=== PATIENT | female | born 1965 | race Hispanic/Latino ===

== ENCOUNTER 2018-06-06 10:51 | Emergency (ER) | payer OTHER ==
[2018-06-06 11:19] LABS: BASOPHILS % (AUTO) 0.7 % (0.0-5.0); EOSINOPHILS % (AUTO) 2.8 % (0.0-8.0); HEMATOCRIT 37.6 % (36-48); LYMPHOCYTES % (AUTO) 26.2 % (21.0-51.0); MEAN CORPUSCULAR HEMOGLOBIN 28.8 pg (27.0-33.0); MEAN CORPUSCULAR HGB CONC 33.1 g/dL (32.0-36.0); MEAN CORPUSCULAR VOLUME 87.1 fL (79-99); MONOCYTES % (AUTO) 7.2 % (3.0-13.0); NEUTROPHILS % (AUTO) 63.1 % (40.0-77.0); NUCLEATED RED BLOOD CELLS 0.2 % (0.0-0.19); PLATELET COUNT (AUTO) 382 K/uL (130-400); RED BLOOD CELL COUNT(AUTO) 4.31 MIL/uL (4.00-5.50); WHITE BLOOD COUNT (AUTO) 9.2 K/uL (4.8-10.8)
[2018-06-06 11:26] LABS: CREATININE 0.8 mg/dL (0.5-1.5); POTASSIUM 3.7 mmol/L (3.5-5.1)
== END 2018-06-06 12:29 | disposition home or self-care (01) ==
LOC: EDH 10:51
DX: N93.9 Abnormal uterine and vaginal bleeding, unspecified (principal)
CPT/HCPCS: 36415; 80048; 85025

== ENCOUNTER 2019-04-12 08:29 | Emergency (ER) | payer OTHER ==
[~2019-04-12] VITALS: Ht 157.5 cm; Wt 53.1 kg
[2019-04-12 09:30] LABS: BASOPHILS % (AUTO) 0.8 % (0.0-5.0); EOSINOPHILS % (AUTO) 4.4 % (0.0-8.0); HEMATOCRIT 40.9 % (36-48); LYMPHOCYTES % (AUTO) 21.8 % (21.0-51.0); MEAN CORPUSCULAR HEMOGLOBIN 29.5 pg (27.0-33.0); MEAN CORPUSCULAR HGB CONC 33.7 g/dL (32.0-36.0); MEAN CORPUSCULAR VOLUME 87.5 fL (79-99); MONOCYTES % (AUTO) 7.9 % (3.0-13.0); NEUTROPHILS % (AUTO) 65.1 % (40.0-77.0); NUCLEATED RED BLOOD CELLS 0.1 % (0.0-0.19); PLATELET COUNT (AUTO) 290 K/uL (130-400); RED BLOOD CELL COUNT(AUTO) 4.67 MIL/uL (4.00-5.50); RED CELL DISTRIBUTION WIDTH 13.6 % (11.0-15.5); WHITE BLOOD COUNT (AUTO) 7.9 K/uL (4.8-10.8)
[2019-04-12 09:33] LABS: APPEARANCE,URINE TURBID (CLEAR); BILIRUBIN,URINE SMALL (NEGATIVE); COLOR,URINE RED (YELLOW); GLUCOSE, URINE (UA) NEGATIVE (NEGATIVE); KETONES,URINE NEGATIVE (NEGATIVE); LEUKOCYTE ESTERASE ,URINE TRACE (NEGATIVE); NITRATE,URINE NEGATIVE (NEGATIVE); OCCULT BLOOD,URINE LARGE (NEGATIVE); PH,URINE 5.5 (5.0-8.0); PROTEIN,URINE 30 mg/dL (NEGATIVE)
[2019-04-12 09:34] LABS: HCG,QUAL RESULT NEGATIVE (NEGATIVE)
[2019-04-12 09:39] LABS: CREATININE 0.9 mg/dL (0.5-1.5); POTASSIUM 3.8 mmol/L (3.5-5.1)
[2019-04-12 09:47] LABS: ALBUMIN 3.6 g/dL (3.5-5.0); BILIRUBIN,TOTAL 0.5 mg/dL (0.2-1.0); TOTAL PROTEIN, SERUM 7.4 g/dL (6.0-8.3)
[2019-04-12 09:52] LABS: BACTERIA,URINE Rare /HPF (None Seen); RBC,URINE Full Field /HPF (0-1); SQUAMOUS EPITHELIAL CELL,UR 0-2 /HPF (0-2); WBC,URINE 0-1 /HPF (0-1)
[2019-04-12] MEDS ORDERED: HYDROCODONE/ACETAMINOPHEN 5/325 MG TAB ONE (10:35)
[2019-04-12] MEDS ORDERED: ESTROGENS,CONJUGATED 25 MG/VIAL IM SCH (12:30)
== END 2019-04-12 13:39 | disposition home or self-care (01) ==
LOC: EDH 08:29
DX: N93.8 Other specified abnormal uterine and vaginal bleeding (principal); N83.202 Unspecified ovarian cyst, left side; Z90.49 Acquired absence of other specified parts of digestive tract; Z87.891 Personal history of nicotine dependence
CPT/HCPCS: 36415; 76856; 80053; 81001; 81025; 85025; 96372; 99285; J1410

== ENCOUNTER 2024-05-20 11:21 | Observation (INO) | payer OTHER ==
[~2024-05-20] VITALS: Ht 157.5 cm; Wt 57.4 kg
[2024-05-20 12:09] LABS: BASOPHILS # (AUTO) 0.08 K/uL (0.00-0.20); BASOPHILS % (AUTO) 1.1 % (0.0-5.0); EOSINOPHILS # (AUTO) 0.17 K/uL (0.00-0.70); EOSINOPHILS % (AUTO) 2.3 % (0.0-8.0); HEMATOCRIT 39.9 % (36-48); IMMATURE GRANULOCYTE ABSOLUTE 0.02 K/uL (0-1); LYMPHOCYTES # (AUTO) 2.4 K/uL (1.0-4.8); LYMPHOCYTES % (AUTO) 33.1 % (21.0-51.0); MEAN CORPUSCULAR HGB CONC 32.3 g/dL (32.0-36.0); MEAN CORPUSCULAR VOLUME 86.6 fL (79-99); MONOCYTES # (AUTO) 0.5 K/uL (0.1-1.0); MONOCYTES % (AUTO) 7.2 % (3.0-13.0); NEUTROPHILS # (AUTO) 4.1 K/uL (1.8-7.7); PLATELET COUNT (AUTO) 321 K/uL (130-400); RED BLOOD CELL COUNT(AUTO) 4.61 MIL/uL (4.00-5.50); RED CELL DISTRIBUTION WIDTH 12.6 % (11.0-15.5); WHITE BLOOD COUNT (AUTO) 7.3 K/uL (4.8-10.8)
[2024-05-20 12:15] LABS: CARBON DIOXIDE 33 mmol/L (21-32); CHLORIDE 106 mmol/L (101-111); CREATININE 0.8 mg/dL (0.5-1.0); GLOMERULAR FILTR. RATE CALC 85 mL/min (>90); GLUCOSE,RANDOM 91 mg/dL (70-105); POTASSIUM 3.5 mmol/L (3.5-5.1); SODIUM SERUM 144 mmol/L (136-145); UREA NITROGEN, BLOOD 10 mg/dL (7-18)
[2024-05-20 12:23] LABS: AMMONIA < 10 umol/L (11-32); CREATINE KINASE, TOTAL 82 U/L (21-232)
--- NOTE | 2024-05-20 12:39 | ERN ---
General Chief Complaint: Dizzy/Light Headed Stated Complaint: DIZZY SPELLS,WANTS TO PASSOUT Time Seen by MD: 11:26 History of Present Illness Initial Comments 59F presents for near syncopal episode x2 this morning with chest discomfort. Patient reports she was at work, she felt very faint and had to sit down. She did not faint. She felt a little bit of chest pressure. She went back to working and she had a 2nd episode. She did not actually lose consciousness. She denies any dyspnea. She has otherwise been in normal state of health. She reports that she had a similar episode not too long ago which had resolved. Patient denies any medical conditions. Allergies: Coded Allergies: No Known Drug Allergies (Verified Allergy, Unknown, 04/12/19) Past Medical History Past Medical History: No Pertinent History Past Surgical History: Appendectomy, Cholecystectomy, Other Surgical History Other: D/C ROS Dictation CONSTITUTIONAL: No chills, no fever, no weakness, no diaphoresis, no malaise. HEAD/FACE: No signs of trauma. EENT: No eye pain, no blurred vision, no tearing, no double vision, no ear pain, no ear discharge, no nose pain, no nasal congestion, no throat pain, no throat swelling, no mouth pain. RESPIRATORY: No cough, no orthopnea, no SOB, no stridor, no wheezing. CARDIOVASCULAR: No chest pain, no edema, no palpitations, no syncope. GASTROINTESTINAL/ABDOMINAL: No abdominal pain, no constipation, no diarrhea, no nausea, no vomiting. GENITOURINARY: No abnormal discharge, no dysuria, no frequent urination, no hematuria. No complaints of pain in the genitals. MUSCULOSKELETAL: No back pain, no gout, no joint pain, no joint swelling, no muscle pain, no muscle stiffness, no neck pain. INTEGUMENTARY: No change in color, no change in hair/nails, no dryness, no lesion, no lumps, no rash. NEUROLOGICAL/PSYCH: Dizziness HEMATOLOGIC/LYMPHATIC: Not anemic, no history of blood clots, no apparent bleeding, no bruising, glands not swollen. All Systems Negative, Except as Noted. Physical Exam Physical Exam Dictation VITAL SIGNS: Reviewed. GENERAL APPEARANCE: Alert, oriented x3, no acute distress. HEAD AND FACE: Non-traumatic. EYES: PERRL, pink conjunctivas, eyelid no trauma, anterior chamber clear. EARS: Pinnas intact and no signs of trauma or erythema. Ear canals clear and no discharge. TMs no erythema. NOSE: No discharge, no bleeding. OROPHARYNX: Mouth normal, teeth no caries, tongue pink. Pharynx clear, no erythema. Tonsils no exudates, no abscesses noted. Mucous membrane moist. NECK: Supple, non-tender, no thyromegaly, no masses, no JVD, no bruits. BREAST: Deferred. CHEST: No tenderness, no crepitus, no paradoxical movement, no retractions. LUNGS: Clear, well-ventilated, symmetric, no rales, no wheezing, no rhonchi, no stridor, good breath sounds bilaterally. HEART: Regular rate, regular rhythm, no murmur, no gallops. VASCULAR: No peripheral edema. ABDOMEN: Soft, positive bowel sounds, nondistended, no guarding, nontender, no rebound, no masses no hepatomegaly, no splenomegaly, no Horta's sign, no hernias. RECTAL: Deferred. GENITAL: Deferred. NEUROLOGICAL: Normal speech, gross motor function intact, gross sensory function intact. MUSCULOSKELETAL: Neck nontender, full range of motion, back nontender, full range of motion. EXTREMITIES: Nontender, full range of motion. SKIN: Color pink, dry, no turgor, no rash, no lacerations, no abrasions, no contusions. LYMPHATICS: Deferred. VITAL SIGNS: Reviewed. GENERAL APPEARANCE: Alert, oriented x3, no acute distress, obese. HEAD AND FACE: Non-traumatic. EYES: PERRL, pink conjunctivas, eyelid no trauma, anterior chamber clear. EARS: Pinnas intact and no signs of trauma or erythema. Ear canals clear and no discharge. TMs no erythema. NOSE: No discharge, no bleeding. OROPHARYNX: Mouth normal, teeth no caries, tongue pink. Pharynx clear, no erythema. Tonsils no exudates, no abscesses noted. Mucous membrane moist. NECK: Supple, non-tender, no thyromegaly, no masses, no JVD, no bruits. BREAST: Deferred. CHEST: No tenderness, no crepitus, no paradoxical movement, no retractions. LUNGS: Clear, well-ventilated, symmetric, no rales, no wheezing, no rhonchi, no stridor, good breath sounds bilaterally. HEART: Regular rate, regular rhythm, no murmur, no gallops. VASCULAR: No peripheral edema. ABDOMEN: Soft, positive bowel sounds, nondistended, no guarding, nontender, no rebound, no masses no hepatomegaly, no splenomegaly, no Horta's sign, no hernias. RECTAL: Deferred. GENITAL: Deferred. NEUROLOGICAL: Normal speech, gross motor function intact, gross sensory function intact. MUSCULOSKELETAL: Neck nontender, full range of motion, back nontender, full range of motion. EXTREMITIES: Nontender, full range of motion. SKIN: Color pink, dry, no turgor, no rash, no lacerations, no abrasions, no contusions. LYMPHATICS: Deferred. Results Laboratory and Microbiology Lab and Micro Result Laboratory Tests Test 05/20/24 11:53 White Blood Count 7.3 K/uL (4.8-10.8) Red Blood Count 4.61 MIL/uL (4.00-5.50) Hemoglobin 12.9 g/dL (12.0-16.0) Hematocrit 39.9 % (36-48) Mean Corpuscular Volume 86.6 fL (79-99) Mean Corpuscular Hemoglobin 28.0 pg (27.0-33.0) Mean Corpuscular Hemoglobin Concent 32.3 g/dL (32.0-36.0) Red Cell Distribution Width 12.6 % (11.0-15.5) Platelet Count 321 K/uL (130-400) Mean Platelet Volume 10.3 fL (7.5-10.5) Immature Granulocyte % (Auto) 0.3 % (0-1) Neutrophils (%) (Auto) 56.0 % (40.0-77.0) Lymphocytes (%) (Auto) 33.1 % (21.0-51.0) Monocytes (%) (Auto) 7.2 % (3.0-13.0) Eosinophils (%) (Auto) 2.3 % (0.0-8.0) Basophils (%) (Auto) 1.1 % (0.0-5.0) Neutrophils # (Auto) 4.1 K/uL (1.8-7.7) Lymphocytes # (Auto) 2.4 K/uL (1.0-4.8) Monocytes # (Auto) 0.5 K/uL (0.1-1.0) Eosinophils # (Auto) 0.17 K/uL (0.00-0.70) Basophils # (Auto) 0.08 K/uL (0.00-0.20) Absolute Immature Granulocyte (auto 0.02 K/uL (0-1) Nucleated Red Blood Cells 0.0 % (0.0-0.19) Sodium Level 144 mmol/L (136-145) Potassium Level 3.5 mmol/L (3.5-5.1) Chloride Level 106 mmol/L (101-111) Carbon Dioxide Level 33 mmol/L (21-32) H Blood Urea Nitrogen 10 mg/dL (7-18) Creatinine 0.8 mg/dL (0.5-1.0) Glomerular Filtration Rate Calc 85 mL/min (>90) Random Glucose 91 mg/dL (70-105) Total Calcium 9.3 mg/dL (8.5-10.1) Magnesium Level 2.20 mg/dL (1.80-2.40) Ammonia < 10 umol/L (11-32) L Total Creatine Kinase 82 U/L (21-232) Troponin I High Sensitivity < 4.0 ng/L (4-50) L MDM CC: Near-syncope x2, chest discomfort. Historian: patient Comorbidities: denies. Limitations Ddx: ACS, arrhythmia, vertigo, infection, anemia, etc. VSS EKG: NSR rate 79, normal axis, good RWP, intervals WNL. No STEMI. CBC: normal. Chemistry normal. Ammonia normal. CK normal. Troponin normal. Patient received 1L NS here in the ED. Patient stable. VSS, labs stable, EKG normal. Since the patient had some chest pressure during the event, we will admit for observation and further treatment. Heart score of two for age ED Course Orders Procedure Category Date Status Time 12 Lead Ekg Tracing- EKG 05/20/24 Logged Technical 11:38 0.9%Nacl 1000ml (Ns PHA 05/20/24 Complete 1000ml) 12:00 Ammonia LAB 05/20/24 Complete 11:41 Cardiac Panel LAB 05/20/24 Complete 11:41 Cbc With Differential LAB 05/20/24 Complete 11:41 Basic Metabolic Panel LAB 05/20/24 Complete 11:41 Magnesium LAB 05/20/24 Complete 11:41 Urinalysis Profile LAB 05/20/24 Logged 11:41 12 Lead Ekg Tracing- EKG 05/20/24 Logged Technical 11:41 Chest 1vw RAD 05/20/24 Logged 13:15 Ct Head/Brain W/O CT 05/20/24 Logged Contrast 13:15 Vital Signs(Adult CPOE 05/20/24 Transmitted Hospitalist) 13:23 Nurse To Enter Home CPOE 05/20/24 Transmitted Medication 13:23 Admit Orders ADM 05/20/24 Transmitted 13:23 Current Medications Medications (Trade) Dose Ordered Sig/Kirby Route PRN Reason Start Time Stop Time Status Last Admin Dose Admin Sodium Chloride 1,000 ml @ 0 mls/hr ONCE ONCE IV 05/20/24 12:00 05/20/24 12:01 DC 05/20/24 13:08 Vital Signs Date Time Temp Pulse Resp B/P (MAP) Pulse Ox O2 Delivery O2 Flow Rate FiO2 05/20/24 11:34 98.6 86 20 108/69 97 Room Air 0 DX & DISP Disposition: Inpatient Departure Impression: Primary Impression: Near syncope Additional Impression: Chest pain Condition: Stable Referrals: NONE (PCP) ELLIOTT MOHR DO May 20, 2024 12:39
[2024-05-20] MEDS: 0.9%NACL 1000ML 1,000 ML IV ONE (13:08)
--- NOTE | 2024-05-20 14:16 | HMCIMG ---
Exam: NONCONTRAST CT BRAIN REASON: CASEY, syncope. COMPARISON: None. TECHNIQUE: Images are obtained from vertex to the skull base. The exam was performed without IV contrast. FINDINGS: There is normal appearing brain parenchyma. There are no focal mass lesions. There is is no evidence of intracranial hemorrhage or acute stroke. Ventricles and sulci appear normal. Posterior fossa and brainstem structures are unremarkable. Paranasal sinuses and remaining extracranial soft tissues appear normal as well. IMPRESSION: 1. Normal noncontrast CT brain. CT was performed with one or more following dose reduction techniques: automated exposure control, adjustment of the mA and kv according to patient's size, or use of a iterative reconstruction technique.
--- NOTE | 2024-05-20 14:18 | EKG ---
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
--- NOTE | 2024-05-20 14:25 | HMCIMG ---
CHEST 1VW REASON: near syncope COMPARISON: None. FINDINGS: Single view of the chest was obtained. Lungs are clear. Heart size is normal. There is no pulmonary vascular congestion. Mediastinum and bony thorax appear unremarkable. IMPRESSION: 1. Normal single view chest x-ray.
[2024-05-20 14:26] LABS: APPEARANCE,URINE CLEAR (CLEAR); BILIRUBIN,URINE NEGATIVE (NEGATIVE); COLOR,URINE LIGHT-YELLOW (YELLOW); GLUCOSE, URINE (UA) NEGATIVE (NEGATIVE); KETONES,URINE NEGATIVE (NEGATIVE); LEUKOCYTE ESTERASE ,URINE NEGATIVE Leu/uL (NEGATIVE); NITRATE,URINE NEGATIVE (NEGATIVE); PH,URINE 6.5 (5.0-8.0); PROTEIN,URINE NEGATIVE (NEGATIVE); UROBILINOGEN,URINE 0.2 mg/dL (0.2-1.0)
[2024-05-20 14:29] LABS: ADD UA MICROSCOPIC YES
[2024-05-20] MEDS ORDERED: ondanSETRON 4MG INJ IVP PRN (14:30)
[2024-05-20 14:33] LABS: BACTERIA,URINE RARE /HPF (None Seen); MUCUS,URINE RARE LPF (None Seen); SQUAMOUS EPITHELIAL CELL,UR RARE /HPF (0-2); WBC,URINE 0-1 /HPF (0-1)
--- NOTE | 2024-05-20 14:37 | HP ---
[facility] HISTORY [facility] PHYSICAL Date of Service: May 20, 2024 Time of Service: 14:32 HISTORY OF PRESENT ILLNESS: [ ] Admission date 2023 PCP none This is a 59-year-old male that presents in ED with chief complaints of multiple near-syncope. Onset reports dizziness have been ongoing for months. Reports losing her balance. This morning when she was at work. She was fine this morning she reports no headaches, palpitation, shortness a breath when on doing her regular routine. Patient has no significant medical history. ER workup was done CT head was negative. We will do further workup carotid Doppler and echo study. Patient was seen in ED patient is fully awake alert oriented x3 no focal or sensory deficits noted. We will do further workup discussed the plan of care with patient and patient's son verbalized understanding. REVIEW OF SYSTEMS CONSTITUTIONAL: Denies fevers, chills, or night sweats. No unintentional weight loss reported. NEUROLOGICAL: Denies headache, amaurosis fugax, motor weakness, sensory deficit, vertigo/spinning sensation, gait abnormalities, or tremors. ENT: No hearing loss, otalgia, otorrhea, rhinitis, rhinorrhea, hoarseness, or sore throat. CARDIOVASCULAR: Denies any exertional angina, dyspnea on exertion, orthopnea, paroxysmal nocturnal dyspnea, palpitations, life-threatening arrhythmias, claudication. PULMONARY: Denies any shortness of breath, cough, phlegm/sputum, hemoptysis, pleuritic chest pain. SLEEP: Denies morning headaches, daytime somnolence or napping. Denies difficulty falling asleep, staying asleep, waking from sleep. Denies knowledge of snoring. GASTROINTESTINAL: Denies any type of dysphagia to either liquids or solids. Denies nausea, vomiting, pyrosis, early satiety, abdominal pain, diarrhea, constipation, or changes in stool consistency or caliber. Denies coffee-ground emesis, hematemesis, hematochezia, or melanotic stools. GENITOURINARY: Denies frequency, urgency, nocturia, hematuria or incontinence (Storage/Irritative symptoms.) Low urinary stream, straining to void, urinary intermittency or hesitancy, splitting of the voiding stream, terminal dribbling. ENDOCRINOLOGIC: Denies polyuria, polydipsia, polyphagia or heat/cold intolerances. HEMATOLOGIC: Denies thrombophilia/previous clots, or coagulopathy/bleeding disorders. ONCOLOGIC: Denies personal history of malignancy. DERMATOLOGIC: Denies rashes or pruritus. PSYCHIATRIC: Denies any suicidal or homicidal ideation. Denies hallucinations. PAST MEDICAL HISTORY: [ ] None PAST SURGICAL HISTORY: [ ] Gallbladder removal, appendectomy PAST SOCIAL HISTORY: [ ] Denies smoking tobacco products and alcohol use FAMILY HISTORY: [ ] Noncontributory Coded Allergies: No Known Drug Allergies (Verified Allergy, Unknown, 04/12/19) PHYSICAL EXAM GENERAL APPEARANCE: The patient is awake, alert, and oriented, in no acute cardiopulmonary distress. NEUROLOGICAL: Cranial nerves II-XII grossly intact. Motor is 5/5 in bilateral upper and lower extremities proximal to distal. No sensory deficits. HEENT: Face is symmetric. Pupils are equal and reactive. Extraocular movements are intact. NECK: Supple. No JVD. No thyromegaly. No submental, submandibular, pre- /postauricular, occipital or supraclavicular lymphadenopathy. CHEST: Normal chest expansion. No Telemetry. LUNGS: Absence of any rales, rhonchi or any wheezing. CARDIOVASCULAR: Regular. S1 and S2 normal. No appreciable rubs, murmurs or gallops. ABDOMEN: Soft, nontender, and nondistended. There is no rebound, voluntary guarding, or rigidity. : Deferred. No Zambrano. EXTREMITIES: Non-edematous and not cyanotic. No clubbing. Good capillary refill. SKIN: No skin breakdown. Vital Sign (Last 24 Hours) 05/20/24 13:22 Temp 98.4 Pulse 70 Resp 18 B/P (MAP) 141/72 Pulse Ox 99 O2 Delivery Room Air* O2 Flow Rate 0 FiO2 21 LABS: Laboratory: Test 05/20/24 13:00 05/20/24 11:53 Range/Units Urine Color LIGHT-YELLOW YELLOW Urine Appearance CLEAR CLEAR Urine pH 6.5 5.0-8.0 Urine Specific Archer 1.020 1.001-1.031 Urine Protein NEGATIVE NEGATIVE mg/dL Urine Glucose (UA) NEGATIVE NEGATIVE mg/dL Urine Ketones NEGATIVE NEGATIVE mg/dL Urine Occult Blood +- (TRACE) H NEGATIVE Urine Nitrate NEGATIVE NEGATIVE Urine Bilirubin NEGATIVE NEGATIVE mg/dL Urine Urobilinogen 0.2 0.2-1.0 mg/dL Urine Leukocyte Esterase NEGATIVE NEGATIVE Reuben/uL White Blood Count 7.3 4.8-10.8 K/uL Red Blood Count 4.61 4.00-5.50 MIL/uL Hemoglobin 12.9 12.0-16.0 g/dL Hematocrit 39.9 36-48 % Mean Corpuscular Volume 86.6 79-99 fL Mean Corpuscular Hemoglobin 28.0 27.0-33.0 pg Mean Corpuscular Hemoglobin Concent 32.3 32.0-36.0 g/dL Red Cell Distribution Width 12.6 11.0-15.5 % Platelet Count 321 130-400 K/uL Mean Platelet Volume 10.3 7.5-10.5 fL Immature Granulocyte % (Auto) 0.3 0-1 % Neutrophils (%) (Auto) 56.0 40.0-77.0 % Lymphocytes (%) (Auto) 33.1 21.0-51.0 % Monocytes (%) (Auto) 7.2 3.0-13.0 % Eosinophils (%) (Auto) 2.3 0.0-8.0 % Basophils (%) (Auto) 1.1 0.0-5.0 % Neutrophils # (Auto) 4.1 1.8-7.7 K/uL Lymphocytes # (Auto) 2.4 1.0-4.8 K/uL Monocytes # (Auto) 0.5 0.1-1.0 K/uL Eosinophils # (Auto) 0.17 0.00-0.70 K/uL Basophils # (Auto) 0.08 0.00-0.20 K/uL Absolute Immature Granulocyte (auto 0.02 0-1 K/uL Nucleated Red Blood Cells 0.0 0.0-0.19 % Sodium Level 144 136-145 mmol/L Potassium Level 3.5 3.5-5.1 mmol/L Chloride Level 106 101-111 mmol/L Carbon Dioxide Level 33 H 21-32 mmol/L Blood Urea Nitrogen 10 7-18 mg/dL Creatinine 0.8 0.5-1.0 mg/dL Glomerular Filtration Rate Calc 85 >90 mL/min Random Glucose 91 70-105 mg/dL Total Calcium 9.3 8.5-10.1 mg/dL Magnesium Level 2.20 1.80-2.40 mg/dL Ammonia < 10 L 11-32 umol/L Total Creatine Kinase 82 21-232 U/L Troponin I High Sensitivity < 4.0 L 4-50 ng/L Current Medications Medications (Trade) Dose Ordered Sig/Kirby Route PRN Reason Start Time Stop Time Status Last Admin Dose Admin Acetaminophen (TYLenol 325MG TAB) 650 mg Q4H PRN PO TEMPERATURE GREATER THAN 101.5 05/20/24 14:30 06/19/24 14:29 Famotidine (Pepcid 20mg Tab) 20 mg DAILY PO 05/21/24 09:00 06/20/24 08:59 Ondansetron HCl (zoFRAN 4MG INJ) 4 mg Q6H PRN IVP NAUSEA/VOMITING 05/20/24 14:30 06/19/24 14:29 DIAGNOSTICS / RADIOLOGY: [ ] REASON: CASEY, syncope ORDERING PHYSICIAN: ELLIOTT MOHR DO PROCEDURE: HEAD WO - CT HEAD/BRAIN W/O CONTRAST Exam: NONCONTRAST CT BRAIN REASON: CASEY, syncope. COMPARISON: None. TECHNIQUE: Images are obtained from vertex to the skull base. The exam was performed without IV contrast. FINDINGS: There is normal appearing brain parenchyma. There are no focal mass lesions. There is is no evidence of intracranial hemorrhage or acute stroke. Ventricles and sulci appear normal. Posterior fossa and brainstem structures are unremarkable. Paranasal sinuses and remaining extracranial soft tissues appear normal as well. IMPRESSION: 1. Normal noncontrast CT brain. CT was performed with one or more following dose reduction techniques: automated exposure control, adjustment of the mA and kv according to patient's size, or use of a iterative reconstruction technique. ASSESSMENT: Near Syncope Dizziness PLAN: [ ] Admit to med surg Consult none Diet cardiac diet TSH lipid panel, Labs; BMP, mag, cmp in am TSH lipid panel, Imaging Test: 2D echo to evaluate LV function, carotid Doppler PT service to eval and treat Replace electrolytes as needed to keep potassium above four and magnesium above 2 PRN: MEDICATIONS Tylenol 650 mg po every 4 hrs for fever zofran 4 mg IV every 6 hrs for n/v Hydralazine 10 mg IV every 4 hrs systolic pressure > 160 Supportive measures: DVT ppx, GI ppx all questions answered time spent: > 35 min Supervising MD: Dr. horn c/d ATTESTATION BY PHYSICIAN I have seen and examined the patient. I reviewed the documentation, medical decision making, and treatment plan as noted by the mid-level provider above. I agree with the findings and plan of care. MYKE HORN MD, ELIZABETH NP May 20, 2024 14:37
[2024-05-20 15:07] LABS: THYROID STIMULATING HORMONE 1.64 uIU/mL (0.36-3.74)
[2024-05-20] MEDS ORDERED: PoTASSium chl 10% ELIXIR 20MEQ 20 MEQ/15 ML UDCUP PO PRN (15:30)
[2024-05-20] MEDS ORDERED: hydrALAZine 20MG/ML VIAL IV PRN (15:30)
[2024-05-20] MEDS ORDERED: MAGNESIUM 2GM PREMIX 50ML 50 ML IV PRN (15:30)
[2024-05-20] MEDS ORDERED: PoTASSium chloRIDE 20MEQ/100ML 100 ML IV PRN (15:30)
--- NOTE | 2024-05-20 15:39 | HMCIMG ---
US CAROTID DUPLEX REASON: dizziness TECHNIQUE: Exam was performed using spectral analysis and color flow imaging. FINDINGS: Color flow Doppler ultrasound shows normal-appearing bifurcations. There is no anatomic evidence of significant focal narrowing. Flow velocities and velocity ratios appear normal throughout. There is antegrade flow in both vertebral arteries. RIGHT CAROTID: CCA: 83 cm/sec ICA: 97 cm/sec Ratio: ICA/CCA: 1.2 ECA: 118 cm/sec Vertebral artery: 57 cm/sec LEFT CAROTID: CCA: 82 cm/sec ICA: 103 cm/sec Ratio: ICA/CCA: 1.3 ECA: 153 cm/sec Vertebral artery: 54 cm/sec IMPRESSION: Normal bilateral carotid Doppler ultrasound.
[2024-05-20] MEDS ORDERED: VITAMIN D (15:43)
[2024-05-20] MEDS ORDERED: OMEP40CA21 PO (15:43)
[2024-05-20 20:00] VITALS: O2SAT 98
[2024-05-20] MEDS: atorVAStatin 20 MG TABLET PO SCH (21:18)
[2024-05-21 02:45] VITALS: BP 123/53; PULSE 66; RESP 18; TEMP 97.7; O2SAT 98
[2024-05-21 05:47] LABS: BASOPHILS # (AUTO) 0.06 K/uL (0.00-0.20); BASOPHILS % (AUTO) 0.9 % (0.0-5.0); EOSINOPHILS # (AUTO) 0.27 K/uL (0.00-0.70); EOSINOPHILS % (AUTO) 4.1 % (0.0-8.0); IMMATURE GRANULOCYTE ABSOLUTE 0.01 K/uL (0-1); LYMPHOCYTES # (AUTO) 2.6 K/uL (1.0-4.8); LYMPHOCYTES % (AUTO) 39.1 % (21.0-51.0); MEAN CORPUSCULAR HEMOGLOBIN 27.7 pg (27.0-33.0); MEAN CORPUSCULAR HGB CONC 32.7 g/dL (32.0-36.0); MEAN CORPUSCULAR VOLUME 84.7 fL (79-99); MONOCYTES # (AUTO) 0.5 K/uL (0.1-1.0); MONOCYTES % (AUTO) 6.8 % (3.0-13.0); NEUTROPHILS # (AUTO) 3.2 K/uL (1.8-7.7); NEUTROPHILS % (AUTO) 48.9 % (40.0-77.0); PLATELET COUNT (AUTO) 308 K/uL (130-400); RED BLOOD CELL COUNT(AUTO) 4.37 MIL/uL (4.00-5.50); RED CELL DISTRIBUTION WIDTH 12.6 % (11.0-15.5); WHITE BLOOD COUNT (AUTO) 6.6 K/uL (4.8-10.8)
[2024-05-21 06:08] LABS: CREATININE 0.9 mg/dL (0.5-1.0); MAGNESIUM 2.1 mg/dL (1.80-2.40); POTASSIUM 3.7 mmol/L (3.5-5.1); THYROID STIMULATING HORMONE 1.81 uIU/mL (0.36-3.74)
[2024-05-21 08:00] VITALS: O2SAT 92
[2024-05-21 08:03] VITALS: BP 103/54; PULSE 59; RESP 17; TEMP 98
[2024-05-21] MEDS: FAMOTIDINE 20MG TAB PO SCH (08:29)
[2024-05-21] MEDS: PoTASSium chloRIDE 20MEQ ER 20 MEQ ERTAB PO PRN (08:29)
[2024-05-21] MEDS: acetaMINOPHEN 325 MG TAB PO PRN (08:34)
--- NOTE | 2024-05-21 09:19 | PN ---
[facility] PROGRESS NOTE Date of Service: May 21, 2024 Time of Service: 09:17 SUBJECTIVE: [ ] Admission date 2023 PCP none This is a 59-year-old male that presents in ED with chief complaints of multiple near-syncope. Onset reports dizziness have been ongoing for months. Reports losing her balance. This morning when she was at work. She was fine this morning she reports no headaches, palpitation, shortness a breath when on doing her regular routine. Patient has no significant medical history. ER workup was done CT head was negative. We will do further workup carotid Doppler and echo study. May 21/2024 patient is seen and examined with Dr. Alvares. Patient is fully awake alert oriented x3 denies dizziness palpitations. Reviewed chart and imaging. Pending 2D echo results and PT evaluation. Waiting for cardiology's input REVIEW OF SYSTEMS CONSTITUTIONAL: Denies fevers, chills, or night sweats. No unintentional weight loss reported. NEUROLOGICAL: Denies headache, amaurosis fugax, motor weakness, sensory deficit, vertigo/spinning sensation, gait abnormalities, or tremors. ENT: No hearing loss, otalgia, otorrhea, rhinitis, rhinorrhea, hoarseness, or sore throat. CARDIOVASCULAR: Denies any exertional angina, dyspnea on exertion, orthopnea, paroxysmal nocturnal dyspnea, palpitations, life-threatening arrhythmias, claudication. PULMONARY: Denies any shortness of breath, cough, phlegm/sputum, hemoptysis, pleuritic chest pain. SLEEP: Denies morning headaches, daytime somnolence or napping. Denies difficulty falling asleep, staying asleep, waking from sleep. Denies knowledge of snoring. GASTROINTESTINAL: Denies any type of dysphagia to either liquids or solids. Denies nausea, vomiting, pyrosis, early satiety, abdominal pain, diarrhea, constipation, or changes in stool consistency or caliber. Denies coffee-ground emesis, hematemesis, hematochezia, or melanotic stools. GENITOURINARY: Denies frequency, urgency, nocturia, hematuria or incontinence (Storage/Irritative symptoms.) Low urinary stream, straining to void, urinary intermittency or hesitancy, splitting of the voiding stream, terminal dribbling. ENDOCRINOLOGIC: Denies polyuria, polydipsia, polyphagia or heat/cold intolerances. HEMATOLOGIC: Denies thrombophilia/previous clots, or coagulopathy/bleeding disorders. ONCOLOGIC: Denies personal history of malignancy. DERMATOLOGIC: Denies rashes or pruritus. PSYCHIATRIC: Denies any suicidal or homicidal ideation. Denies hallucinations. PHYSICAL EXAM GENERAL APPEARANCE: The patient is awake, alert, and oriented, in no acute cardiopulmonary distress. NEUROLOGICAL: Cranial nerves II-XII grossly intact. Motor is 5/5 in bilateral upper and lower extremities proximal to distal. No sensory deficits. HEENT: Face is symmetric. Pupils are equal and reactive. Extraocular movements are intact. NECK: Supple. No JVD. No thyromegaly. No submental, submandibular, pre- /postauricular, occipital or supraclavicular lymphadenopathy. CHEST: Normal chest expansion. No Telemetry. LUNGS: Absence of any rales, rhonchi or any wheezing. CARDIOVASCULAR: Regular. S1 and S2 normal. No appreciable rubs, murmurs or gallops. ABDOMEN: Soft, nontender, and nondistended. There is no rebound, voluntary guarding, or rigidity. : Deferred. No Zambrano. EXTREMITIES: Non-edematous and not cyanotic. No clubbing. Good capillary refill. SKIN: No skin breakdown. Vital Signs (last 8hr) Date Time Temp Pulse Resp B/P (MAP) Pulse Ox O2 Delivery O2 Flow Rate FiO2 05/21/24 08:03 98.1 59 17 103/54 92 Room Air 21 05/21/24 02:45 98 Room Air* 0 21 05/21/24 02:45 97.7 66 18 123/53 97 Room Air LABS: Laboratory: Test 05/21/24 05:38 05/21/24 03:06 05/20/24 13:00 05/20/24 11:53 Range/Units White Blood Count 6.6 4.8-10.8 K/uL Red Blood Count 4.37 4.00-5.50 MIL/uL Hemoglobin 12.1 12.0-16.0 g/dL Hematocrit 37.0 36-48 % Mean Corpuscular Volume 84.7 79-99 fL Mean Corpuscular Hemoglobin 27.7 27.0-33.0 pg Mean Corpuscular Hemoglobin Concent 32.7 32.0-36.0 g/dL Red Cell Distribution Width 12.6 11.0-15.5 % Platelet Count 308 130-400 K/uL Mean Platelet Volume 10.4 7.5-10.5 fL Immature Granulocyte % (Auto) 0.2 0-1 % Neutrophils (%) (Auto) 48.9 40.0-77.0 % Lymphocytes (%) (Auto) 39.1 21.0-51.0 % Monocytes (%) (Auto) 6.8 3.0-13.0 % Eosinophils (%) (Auto) 4.1 0.0-8.0 % Basophils (%) (Auto) 0.9 0.0-5.0 % Neutrophils # (Auto) 3.2 1.8-7.7 K/uL Lymphocytes # (Auto) 2.6 1.0-4.8 K/uL Monocytes # (Auto) 0.5 0.1-1.0 K/uL Eosinophils # (Auto) 0.27 0.00-0.70 K/uL Basophils # (Auto) 0.06 0.00-0.20 K/uL Absolute Immature Granulocyte (auto 0.01 0-1 K/uL Nucleated Red Blood Cells 0.0 0.0-0.19 % Sodium Level 143 136-145 mmol/L Potassium Level 3.7 3.5-5.1 mmol/L Chloride Level 108 101-111 mmol/L Carbon Dioxide Level 30 21-32 mmol/L Blood Urea Nitrogen 13 7-18 mg/dL Creatinine 0.9 0.5-1.0 mg/dL Glomerular Filtration Rate Calc 74 >90 mL/min Random Glucose 94 70-105 mg/dL Total Calcium 9.1 8.5-10.1 mg/dL Magnesium Level 2.10 1.80-2.40 mg/dL Triglycerides Level 136 30-200 mg/dL Cholesterol Level 259 H <200 mg/dL LDL Cholesterol 156 H 0-99 mg/dL HDL Cholesterol 57 35-85 mg/dL Thyroid Stimulating Hormone (TSH) 1.81 0.36-3.74 uIU/mL Whole Blood Glucose 104 70-110 MG/DL Urine Color LIGHT-YELLOW YELLOW Urine Appearance CLEAR CLEAR Urine pH 6.5 5.0-8.0 Urine Specific [place] 1.020 1.001-1.031 Urine Protein NEGATIVE NEGATIVE mg/dL Urine Glucose (UA) NEGATIVE NEGATIVE mg/dL Urine Ketones NEGATIVE NEGATIVE mg/dL Urine Occult Blood +- (TRACE) H NEGATIVE Urine Nitrate NEGATIVE NEGATIVE Urine Bilirubin NEGATIVE NEGATIVE mg/dL Urine Urobilinogen 0.2 0.2-1.0 mg/dL Urine Leukocyte Esterase NEGATIVE NEGATIVE Reuben/uL Urine RBC 2-5 H 0-1 /HPF Urine WBC 0-1 0-1 /HPF Urine Squamous Epithelial Cells RARE 0-2 /HPF Urine Bacteria RARE None Seen /HPF Ammonia < 10 L 11-32 umol/L Total Creatine Kinase 82 21-232 U/L Troponin I High Sensitivity < 4.0 L 4-50 ng/L Current Medications Medications (Trade) Dose Ordered Sig/Kirby Route PRN Reason Start Time Stop Time Status Last Admin Dose Admin Acetaminophen (TYLenol 325MG TAB) 650 mg Q4H PRN PO TEMPERATURE GREATER THAN 101.5 05/20/24 14:30 06/19/24 14:29 05/21/24 08:34 650 MG Atorvastatin Calcium (LIPItor 20MG) 20 mg HS PO 05/20/24 21:00 06/19/24 20:59 05/20/24 21:18 20 MG Famotidine (Pepcid 20mg Tab) 20 mg DAILY PO 05/21/24 09:00 06/20/24 08:59 05/21/24 08:29 20 MG Hydralazine HCl (APRESOLine 20MG INJ) 5 mg Q4H PRN IV ADMINISTER FOR SBP > 160 05/20/24 15:30 06/19/24 15:29 Magnesium Sulfate 50 ml @ 0 mls/hr PROTOCOL PRN IV low mag level 05/20/24 15:30 06/19/24 15:29 Ondansetron HCl (zoFRAN 4MG INJ) 4 mg Q6H PRN IVP NAUSEA/VOMITING 05/20/24 14:30 06/19/24 14:29 Potassium Chloride 100 ml @ 100 mls/hr AD PRN IV POTASSIUM PROTOCOL 05/20/24 15:30 06/19/24 15:29 Potassium Chloride (K-Dur/Klor-Con 20meq) 20 meq AD PRN PO POTASSIUM PROTOCOL 05/20/24 15:30 06/19/24 15:29 05/21/24 08:29 20 MEQ Potassium Chloride (KCl 10% Elixir 20meq/15ml) 20 meq AD PRN PO POTASSIUM PROTOCOL 05/20/24 15:30 06/19/24 15:29 DIAGNOSTICS / RADIOLOGY: [ ] ASSESSMENT: Near Syncope POA Dizziness POA hyperlipidemia POA PLAN: [ ] Admit to med surg 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 alvares c/d ATTESTATION BY PHYSICIAN I have seen and examined the patient. I reviewed the documentation, medical decision making, and treatment plan as noted by the mid-level provider above. I agree with the findings and plan of care. MYKE ALVARES MD, ELIZABETH NP May 21, 2024 09:19
[2024-05-21 12:36] VITALS: BP 109/70; PULSE 58; RESP 16; TEMP 98.1
--- NOTE | 2024-05-21 14:34 | HMCSR ---
APPROVED REPORT EXAM: Two-dimensional and M-mode echocardiogram with Doppler and color Doppler. INDICATION ICD: Near syncope 2D Dimensions RVDd3.8 cmLVEF(%)63.6 (>50%)LVED Vol(simp.)60.1 mL IVSd0.7 (0.7-1.1cm)FS(%)34 %LVES Vol(simp.)17.1 mL LVDd4.1 (3.8-5.6cm)LA (2D)3.1 (1.6-4.0cm)LVEF(%, simp.)72 % PWd0.7 (0.7-1.1cm)Ao Root(2D)2.9 (2.0-3.7cm)LA ESV INDEX (4CH)22.70 mL/m2 IVSs0.8 cmLVOT diam1.9 (1.8-2.4cm)LA ESV INDEX (2CH)23.40 mL/m2 LVDs2.7 (2.5-4.0cm)LA ESV INDEX (BP)23.60 mL/m2 PWs1.1 cm Deformation Strain Apical 426.0 % Apical 223.0 % Apical 327.0 % Global Wnsgbs09.0 % M-Mode Dimensions EPSS0.8 cm LA (MM)3.1 (1.6-4.0cm) Ao Root(MM)2.4 (2.0-3.7cm) Aortic Valve AoV VTI0.4 mAo Mean GR9.0 mmHgLVOT VTI0.18 m CHRIST (VMAX)1.2 cm2Al P1/2T582 msAVA (VTI) 1.2 cm2 Mitral Valve MV E Vmax84.4 cm/sDECEL Zrqd240 ms MV A Vmax66.0 cm/sP 1/2 T49 ms E/A ratio1.3MVA (PHT)4.5 cm2 TDI E/E' Dtcgsu30.7E/E' Lateral8.8 Medial E' Peak V7.20 cm/sLateral E' Peak V9.60 cm/s Pulmonary Valve PV VTI0.25 mPV Mean GR3 mmHg Tricuspid Valve TR Vmax2.3 m/s TR Peak GR21.2 mmHg Left Ventricle The left ventricle structure and function is normal. GLS -25.0% Normal wall motion There is normal le ft ventricular wall thickness. LVEF is >65%. The left ventricular diastolic function is normal. Right Ventricle The right ventricle is normal size. The right ventricular systolic function is normal. Atria The left atrium size is normal. Atrial septum is bowed toward the right. The right atrium size is nor mal. Aortic Valve Aortic valve is trileaflet, mildly sclerotic but opens well. Trace of aortic regurgitation is present . There is no aortic valvular stenosis. Mitral Valve Anterior mitral valve leaflets is mildly prolapsed. There is trivial mitral valve regurgitation noted . There is no mitral valve stenosis. Tricuspid Valve The tricuspid valve is normal in structure and function. There is trace of tricuspid valve regurgitat ion noted. Pulmonic Valve The pulmonary valve is normal in structure and function. There is no pulmonic valvular regurgitation. Great Vessels The aortic root is normal in size. Pericardium Trivial pericardial effusion. No echo indications of pericardial tamponade. Other Information Quality : Good Conclusion LVEF is >65%. The left ventricular diastolic function is normal. There is normal left ventricular wall thickness. The left ventricle structure and function is normal. GLS -25.0% Normal wall motion NO effusion Normal pulmonary pressures Study quality was adequate
--- NOTE | 2024-05-21 15:14 | CONS ---
[facility] CARDIOLOGY CONSULTATION NOTE Date Patient Seen: May 21, 2024 Time of Visit: 15:06 Requesting Physician: [ ] Reason for Consultation: [ ] History of Present Illness: [59-year-old patient has been experiencing abrupt onset of what sounds like vertigo/ataxia for about three months. Episodes usually last briefly, but sometimes are recurrent and sometimes last longer. Sometimes she has to leave worked go home because of these episodes. She describes a sense that the world is spinning, no nausea, sometime it is provoked by turning abruptly from side to side. Symptoms are somewhat sporadic but disabling. Patient has to grab onto things to steady herself so she will not stumble or fall. She veers to one side or the other as she is ambulating. She denies any associated blurred vision, tunnel vision, scintillations or other occipital symptoms. Denies any previous known history of hypercholesterolemia although LDL is markedly elevated in our lab. Denies diabetes or hypertension. States she has a history of hypoglycemia and when she gets hypoglycemia it feels similar to what the symptoms have been recently. Recent symptoms, however, have occurred shortly after eating when she would not be hypoglycemic. CONSTITUTIONAL: No chills, no fever, weight loss or weight gain, no diaphoresis. EENT: No tinnitus, recent onset vertigo. RESPIRATORY: No cough or sputum production, no wheezing, no asthma. Denies asthma or COPD CARDIOVASCULAR: No chest pain, no chest pressure, no orthopnea, no paroxysmal nocturnal dyspnea, no palpitations, no syncope, no true presyncope. Admits vertigo-type dizziness and lightheadedness. GASTROINTESTINAL/ABDOMINAL: No abdominal pain, no nausea, no vomiting. MUSCULOSKELETAL: No gout, no joint swelling, no myalgia. INTEGUMENTARY: No hyperpigmentation, normal nail thickness, no ulceration, no stasis changes. NEUROLOGICAL/PSYCH: No seizure history, no neuralgia. 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 HEMATOLOGIC/LYMPHATIC: Not anemic, no history of blood . All Systems Negative, Except as Noted. ] GENERAL APPEARANCE: Alert, oriented x3, no acute distress. EYES: PERRL, extraocular movements normal. NECK: no thyromegaly, no lymphadenopathy, no JVD, no bruits. CHEST: Non-labored respiration, no retractions, no accessory muscle use, no rales, no rhonchi, no tenderness. HEART: S1 normal, S2 normal, no S3, no murmur, regular rhythm. VASCULAR: No peripheral edema, peripheral pulses intact. ABDOMEN: Protuberant, normal bowel sounds, nontender. NEUROLOGICAL: Normal speech, extraocular movements normal, facial expressions symmetric, cognition and affect intact. EXTREMITIES: Nontender, no deformities, no clubbing. SKIN: Color pink, dry, normal turgor, no rash. LYMPHATICS: No edema. Impression: The patient has a history of hypoglycemia and she has difficulty differentiating between those symptoms and the current symptoms. The recent symptoms seem to be benign positional vertigo, but the fact that she also has episodes of confusion and disorientation associated with these symptoms, raises the question of whether she may have a primary neurologic problem or some sort of atypical seizure disorder. It is possible she could have a bradyarrhythmia or orthostatic hypotension, but the symptoms are not really typical for those disorders. Recommendation: I would 1st begin with a neurology consult, and if there is no neurological explanation for the symptoms I would concentrate on blood sugar determinations during symptoms, and pending those results I would escalate the evaluation to a tilt-table test (available at [facility] on an outpatient basis) and further outpatient monitoring. Past Medical History: [ ] Past Surgical History: [ ] Family History: [ ] Social History: [ ] Habits: [Never] smoker. [Denies] alcohol consumption. [Denies] illicit drug use Home Meds: [ ] Current Meds: [ ] Vital Signs (last 8hr) Date Time Temp Pulse Resp B/P (MAP) Pulse Ox O2 Delivery O2 Flow Rate FiO2 05/21/24 12:36 98.1 58 16 109/70 97 Room Air 21 05/21/24 08:03 98.1 59 17 103/54 92 Room Air 21 Laboratory: [ ] Hematology Labs: Test 05/21/24 05:38 Range/Units White Blood Count 6.6 4.8-10.8 K/uL Red Blood Count 4.37 4.00-5.50 MIL/uL Hemoglobin 12.1 12.0-16.0 g/dL Hematocrit 37.0 36-48 % Mean Corpuscular Volume 84.7 79-99 fL Mean Corpuscular Hemoglobin 27.7 27.0-33.0 pg Mean Corpuscular Hemoglobin Concent 32.7 32.0-36.0 g/dL Red Cell Distribution Width 12.6 11.0-15.5 % Platelet Count 308 130-400 K/uL Mean Platelet Volume 10.4 7.5-10.5 fL Immature Granulocyte % (Auto) 0.2 0-1 % Neutrophils (%) (Auto) 48.9 40.0-77.0 % Lymphocytes (%) (Auto) 39.1 21.0-51.0 % Monocytes (%) (Auto) 6.8 3.0-13.0 % Eosinophils (%) (Auto) 4.1 0.0-8.0 % Basophils (%) (Auto) 0.9 0.0-5.0 % Neutrophils # (Auto) 3.2 1.8-7.7 K/uL Lymphocytes # (Auto) 2.6 1.0-4.8 K/uL Monocytes # (Auto) 0.5 0.1-1.0 K/uL Eosinophils # (Auto) 0.27 0.00-0.70 K/uL Basophils # (Auto) 0.06 0.00-0.20 K/uL Absolute Immature Granulocyte (auto 0.01 0-1 K/uL Nucleated Red Blood Cells 0.0 0.0-0.19 % Chemistry Labs: Test 05/21/24 05:38 05/21/24 03:06 05/20/24 11:53 Range/Units Sodium Level 143 136-145 mmol/L Potassium Level 3.7 3.5-5.1 mmol/L Chloride Level 108 101-111 mmol/L Carbon Dioxide Level 30 21-32 mmol/L Blood Urea Nitrogen 13 7-18 mg/dL Creatinine 0.9 0.5-1.0 mg/dL Glomerular Filtration Rate Calc 74 >90 mL/min Random Glucose 94 70-105 mg/dL Total Calcium 9.1 8.5-10.1 mg/dL Magnesium Level 2.10 1.80-2.40 mg/dL Triglycerides Level 136 30-200 mg/dL Cholesterol Level 259 H <200 mg/dL LDL Cholesterol 156 H 0-99 mg/dL HDL Cholesterol 57 35-85 mg/dL Thyroid Stimulating Hormone (TSH) 1.81 0.36-3.74 uIU/mL Whole Blood Glucose 104 70-110 MG/DL Ammonia < 10 L 11-32 umol/L Total Creatine Kinase 82 21-232 U/L Troponin I High Sensitivity < 4.0 L 4-50 ng/L Diagnostics / Radiology: [Copy/Paste Echos/Imaging Report here] DEVORA ARIAS MD May 21, 2024 15:14
[2024-05-21] MEDS ORDERED: ATOR20TA65 PO (16:37)
--- NOTE | 2024-05-21 16:50 | DS ---
Discharge Summary Hospital Course Summary: Admission date 2023 PCP none This is a 59-year-old male that presents in ED with chief complaints of multiple near-syncope. Onset reports dizziness have been ongoing for months. Reports losing her balance. This morning when she was at work. She was fine this morning she reports no headaches, palpitation, shortness a breath when on doing her regular routine. Patient has no significant medical history. During the course of stay patient had workup down carotid Dopplers CT head 2D echo was negative. Cardiac Exercise Physiologist's was consulted he is recommending patient will need a neurologist's referral and if there is no neurological explanation for the symptoms I would concentrate on blood sugar determinations during symptoms, and pending those results I would escalate the evaluation to a tilt-table test (available at [facility] on an outpatient basis) and further outpatient monitoring. 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 Advised to keep herself hydration she asked her she needs to follow-up with her PCP to get a referral for neurologist. She verbalized understanding. He is clinically stable for discharge Procedure(s): REASON: near syncope ORDERING PHYSICIAN: MARION CALVERT NP PROCEDURE: ECHO [facility] - ECHO 2-D COMPLETE APPROVED REPORT EXAM: Two-dimensional and M-mode echocardiogram with Doppler and color Doppler. INDICATION ICD: Near syncope 2D Dimensions RVDd 3.8 cm LVEF(%) 63.6 (>50%) LVED Vol(simp.) 60.1 mL IVSd 0.7 (0.7-1.1cm) FS(%) 34 % LVES Vol(simp.) 17.1 mL LVDd 4.1 (3.8-5.6cm) LA (2D) 3.1 (1.6-4.0cm) LVEF(%, simp.) 72 % PWd 0.7 (0.7-1.1cm) Ao Root(2D) 2.9 (2.0-3.7cm) LA ESV INDEX (4CH) 22.70 mL/m2 IVSs 0.8 cm LVOT diam 1.9 (1.8-2.4cm) LA ESV INDEX (2CH) 23.40 mL/m2 LVDs 2.7 (2.5-4.0cm) LA ESV INDEX (BP) 23.60 mL/m2 PWs 1.1 cm Deformation Strain Apical 4 26.0 % Apical 2 23.0 % Apical 3 27.0 % Global Strain 25.0 % M-Mode Dimensions EPSS 0.8 cm LA (MM) 3.1 (1.6-4.0cm) Ao Root(MM) 2.4 (2.0-3.7cm) Aortic Valve AoV VTI 0.4 m Ao Mean GR 9.0 mmHg LVOT VTI 0.18 m CHRIST (VMAX) 1.2 cm2 Al P1/2T 582 ms CHRIST (VTI) 1.2 cm2 Mitral Valve MV E Vmax 84.4 cm/s DECEL Time 187 ms MV A Vmax 66.0 cm/s P 1/2 T 49 ms E/A ratio 1.3 MVA (PHT) 4.5 cm2 TDI E/E' Medial 11.7 E/E' Lateral 8.8 Medial E' Peak V 7.20 cm/s Lateral E' Peak V 9.60 cm/s Pulmonary Valve PV VTI 0.25 m PV Mean GR 3 mmHg Tricuspid Valve TR Vmax 2.3 m/s TR Peak GR 21.2 mmHg Left Ventricle The left ventricle structure and function is normal. GLS -25.0% Normal wall motion There is normal left ventricular wall thickness. LVEF is >65%. The left ventricular diastolic function is normal. Right Ventricle The right ventricle is normal size. The right ventricular systolic function is normal. Atria The left atrium size is normal. Atrial septum is bowed toward the right. The right atrium size is normal. Aortic Valve Aortic valve is trileaflet, mildly sclerotic but opens well. Trace of aortic regurgitation is present. There is no aortic valvular stenosis. Mitral Valve Anterior mitral valve leaflets is mildly prolapsed. There is trivial mitral valve regurgitation noted. There is no mitral valve stenosis. Tricuspid Valve The tricuspid valve is normal in structure and function. There is trace of tricuspid valve regurgitation noted. Pulmonic Valve The pulmonary valve is normal in structure and function. There is no pulmonic valvular regurgitation. Great Vessels The aortic root is normal in size. Pericardium Trivial pericardial effusion. No echo indications of pericardial tamponade. Other Information Quality : Good Conclusion LVEF is >65%. The left ventricular diastolic function is normal. There is normal left ventricular wall thickness. The left ventricle structure and function is normal. GLS -25.0% Normal wall motion NO effusion Normal pulmonary pressures Study quality was adequate REASON: dizziness ORDERING PHYSICIAN: MARION CALVERT NP PROCEDURE: CAROTID - US CAROTID DUPLEX US CAROTID DUPLEX REASON: dizziness TECHNIQUE: Exam was performed using spectral analysis and color flow imaging. FINDINGS: Color flow Doppler ultrasound shows normal-appearing bifurcations. There is no anatomic evidence of significant focal narrowing. Flow velocities and velocity ratios appear normal throughout. There is antegrade flow in both vertebral arteries. RIGHT CAROTID: CCA: 83 cm/sec ICA: 97 cm/sec Ratio: ICA/CCA: 1.2 ECA: 118 cm/sec Vertebral artery: 57 cm/sec LEFT CAROTID: CCA: 82 cm/sec ICA: 103 cm/sec Ratio: ICA/CCA: 1.3 ECA: 153 cm/sec Vertebral artery: 54 cm/sec IMPRESSION: Normal bilateral carotid Doppler ultrasound. DICTATED BY: JULI REN MD REASON: CASEY, syncope ORDERING PHYSICIAN: ELLIOTT MOHR DO PROCEDURE: HEAD WO - CT HEAD/BRAIN W/O CONTRAST Exam: NONCONTRAST CT BRAIN REASON: CASEY, syncope. COMPARISON: None. TECHNIQUE: Images are obtained from vertex to the skull base. The exam was performed without IV contrast. FINDINGS: There is normal appearing brain parenchyma. There are no focal mass lesions. There is is no evidence of intracranial hemorrhage or acute stroke. Ventricles and sulci appear normal. Posterior fossa and brainstem structures are unremarkable. Paranasal sinuses and remaining extracranial soft tissues appear normal as well. IMPRESSION: 1. Normal noncontrast CT brain. Assessment/Plan: discharged dx/ Near Syncope POA work up done was negative will need neurologist referral Dizziness POA resolved hyperlipidemia POA PLAN: [ ] ADMISSION DATE: May 20, 2024 DISCHARGE DATE: May 21, 2024 DISPOSITION: Home CONDITION: Stable POLYGRAPH OPERATOR(S): Cardiology's FOLLOW UP APPOINTMENT(S): PCP 2-3 days: will need a neurology consult, and if there is no neurological explanation for the symptoms I would concentrate on blood sugar determinations during symptoms, and pending those results I would escalate the evaluation to a tilt-table test (available at [facility] on an outpatient basis) and further outpatient monitoring. PROCEDURES: none IMAGING (S) report attached to summary : echo, carotid doppler, MICROBIOLOGY: report attached to summary; UA negative ACTIVITY: [place] HOME MEDICATIONS remain the same CHANGES ON HOME MEDICATIONS None NEW MEDICATIONS atorvastatin 20 mg po hs TEACHING: fall precaution avoid skipping meals. Keep self hydrated Emergency instructions: The patient was instructed to present to the nearest Emergency Department or call 911 should their symptoms return or worsen. Home Medications: Reported Medications [Vitamin D] No Conflict Check 05/20/24 Omeprazole (Omeprazole) 40 Mg Capsule., 1 CAP PO DAILY for 30 Days, #30 CAP 0 Refills 05/20/24 New Medications: Atorvastatin Calcium (Atorvastatin Calcium) 20 Mg Tablet 20 MG PO HS for 30 Days, #30 TAB Continued Medications: Omeprazole (Omeprazole) 40 Mg Capsule. 1 CAP PO DAILY for 30 Days, #30 CAP 0 Refills [Vitamin D] () Time spent arranging discharge: 31-60 minutes ATTESTATION BY PHYSICIAN I have seen and examined the patient. I reviewed the documentation, medical decision making, and treatment plan as noted by the mid-level provider above. I agree with the findings and plan of care. MYKE ALVARES MD, ELIZABETH NP May 21, 2024 16:50
[2024-05-21 17:31] VITALS: BP 108/65; PULSE 74; RESP 18; TEMP 98.1
== END 2024-05-21 17:50 | disposition home or self-care (01) ==
LOC: EDH 11:21 → EDHIP 13:23 → INTOOBSV 13:23 → EDHIP 20:56 → 4DH 05-21 02:38
PROVIDERS: ADMIT Internal Medicine; ATTEND Internal Medicine
DX: R55 Syncope and collapse (principal); R42 Dizziness and giddiness; E78.5 Hyperlipidemia, unspecified; R07.89 Other chest pain; R50.9 Fever, unspecified; R11.2 Nausea with vomiting, unspecified; F19.90 Other psychoactive substance use, unspecified, uncomplicated; R41.0 Disorientation, unspecified; Z90.49 Acquired absence of other specified parts of digestive tract; Z79.899 Other long term (current) drug therapy
CPT/HCPCS: 99285; 96361 ×2; 93880; 96360; 70450; 71045; 80061 ×2; 84443 ×2; 82550; 83735 ×2; 84484; 80048 ×2; 82140; 85025 ×2; 81001; 36415 ×2; 93005; 93306; 97161; 97116; 82948; 93356; G0378